=== PATIENT | female | born 1955 | race Caucasian/White ===

== ENCOUNTER 2017-09-19 19:02 | Emergency (ER) | payer BC ==
[2017-09-19 19:10] VITALS: BP 154/95
--- NOTE | 2017-09-19 19:37 | UC ---
Minor Trauma HPI - HPI Summary HPI Summary: Patient here today with chief complaint of left rib pain after falling while skiing on September 16 she is concerned because the pain continues has no other complaints denies shortness of breath no abdominal pain - History of Current Complaint Chief Complaint: UCUpperExtremity Stated Complaint: RIB INJURY Time Seen by Provider: 09/19/17 19:32 Hx Obtained From: Patient ?: No Onset/Duration: Sudden Onset Onset Of Pain: Immediate Severity Initially: Mild Severity Currently: Mild Pain Intensity: 3 Mechanism Of Injury: Fall From A Standing Position Aggravating Factor(s): Nothing Alleviating Factor(s): Nothing - Allergies/Home Medications Allergies/Adverse Reactions: Allergies Allergy/AdvReac Type Severity Reaction Status Date / Time Latex Allergy Hives Uncoded 09/19/17 19:11 PMH/Surg Hx/FS Hx/Imm Hx Previously Healthy: Yes Neurological History: Migraine - Surgical History Surgical History: Yes Surgery Procedure, Year, and Place: 03/11/13 - ENDOSCOPIC DECOMPRESSION L4, 2010 - L5/S1 LAMINECTOMY/DISCECTOMY, HYSTERECTOMY - Family History Known Family History: Positive: None - Social History Occupation: Retired Lives: With Family Alcohol Use: Occasionally Alcohol Amount: several drinks/week Substance Use Type: None Smoking Status (MU): Never Smoked Tobacco Have You Smoked in the Last Year: No Review of Systems Constitutional: Negative Skin: Negative Eyes: Negative ENT: Negative Respiratory: Negative Cardiovascular: Negative Gastrointestinal: Negative Genitourinary: Negative Motor: Negative Neurovascular: Negative Musculoskeletal: Negative, Arthralgia - left lateral rib pain Neurological: Negative Psychological: Negative Is Patient Immunocompromised?: No All Other Systems Reviewed And Are Negative: Yes Physical Exam Triage Information Reviewed: Yes Appearance: Well-Appearing, No Pain Distress, Well-Nourished Vital Signs: Initial Vital Signs Temp 98.6 F 09/19/17 19:08 Pulse 76 09/19/17 19:08 Resp 18 09/19/17 19:08 BP 154/95 09/19/17 19:08 Pulse Ox 98 09/19/17 19:08 Vital Signs Reviewed: Yes Eye Exam: Normal Eyes: Positive: Conjunctiva Clear ENT Exam: Normal ENT: Positive: Normal ENT inspection, Hearing grossly normal, TMs normal. Negative: Nasal congestion, Trismus, Muffled voice, Hoarse voice, Dental tenderness, Sinus tenderness Dental Exam: Normal Neck exam: Normal Neck: Positive: 1 Respiratory Exam: Normal Respiratory: Positive: Chest non-tender, Lungs clear, Normal breath sounds, No respiratory distress, No accessory muscle use Cardiovascular Exam: Normal Cardiovascular: Positive: RRR, No Murmur, Pulses Normal, Brisk Capillary Refill Abdominal Exam: Normal Abdomen Description: Positive: Nontender, No Organomegaly, Soft. Negative: CVA Tenderness (R), CVA Tenderness (L), Guarding Bowel Sounds: Positive: Present Musculoskeletal Exam: Normal Musculoskeletal: Positive: Strength Intact, ROM Intact, No Edema Neurological Exam: Normal Neurological: Positive: Alert, Muscle Tone Normal Psychological Exam: Normal Skin Exam: Normal Diagnostics - Radiology No standard instances Xray Interpretation: No Acute Changes Radiology Interpretation Completed By: Radiologist Minor Trauma Course/Dx - Course Course Of Treatment: Course of treatment ibuprofen rest ice to the area follow- up blood pressure with primary care provider likely elevated due to chief complaint today will recheck in 1-2 weeks - Differential Dx/Diagnosis Provider Diagnoses: Elevated blood pressure nohistory of hypertension left rib contusion Discharge - Discharge Plan Condition: Stable Disposition: HOME Patient Education Materials: Ibuprofen (By mouth), Hypertension (ED), Safe Use of NSAIDs (ED), Rib Contusion (ED) Referrals: Robin Alfaro MD [Primary Care Provider] - 1 Week
--- NOTE | 2017-09-19 20:13 | RAD ---
INDICATION: Left rib pain COMPARISON: None TECHNIQUE: Multiple views of the ribs were obtained. FINDINGS: Bones: There is no evidence of acute rib fracture. LUNGS: The lungs are clear. There is no pneumothorax. Pleural spaces: There is no evidence of hemothorax. Other: None IMPRESSION: NO EVIDENCE OF DISPLACED RIB FRACTURE.
== END 2017-09-19 21:07 | disposition home or self-care (01) ==
LOC: UCEAST 19:02
DX: S20.20XA Contusion of thorax, unspecified, initial encounter (principal); V00.321A Fall from snow-skis, initial encounter; Y93.23 Activity, snow (alpine) (downhill) skiing, snowboarding, sledding, tobogganing and snow tubing; Y92.9 Unspecified place or not applicable; R03.0 Elevated blood-pressure reading, without diagnosis of hypertension; G43.909 Migraine, unspecified, not intractable, without status migrainosus; Z91.040 Latex allergy status
CPT/HCPCS: 99211; G0463